=== PATIENT | male | born 1960 | race Caucasian/White ===

== ENCOUNTER → 2018-12-11 13:45 | Outpatient (CLI) | payer MEDICARE | END | disposition home or self-care (01) | LOC: D.RT 13:45 | PROVIDERS: ATTEND Internal Medicine Pulmonary Disease | DX: J43.9 Emphysema, unspecified (principal) ==

== ENCOUNTER → 2019-01-24 11:46 | Outpatient (CLI) | payer MEDICARE | END | disposition home or self-care (01) | LOC: D.LAB 11:46 | PROVIDERS: ATTEND Internal Medicine Pulmonary Disease | DX: J43.9 Emphysema, unspecified (principal) ==

== ENCOUNTER 2019-02-14 08:22 | Outpatient (CLI) | payer MEDICARE ==
[~2019-02-14] VITALS: Ht 182.9 cm; Wt 79.5 kg
[2019-02-14 09:06] LABS: APTT 32.1 SECONDS (22.8-39.4); INR 1.03 (0.85-1.17)
[2019-02-14 09:09] LABS: BASOPHILS 0.2 % (0-2); EOSINOPHILS 2.3 % (0-7); HEMATOCRIT 38.7 % (42.0-54.0); HEMOGLOBIN 12.4 g/dL (13.5-17.5); IMMATURE GRANULOCYTES 0.3 % (0-5); LYMPHOCYTES 22.3 % (15-50); MCH 27.8 pg (26.0-34.0); MCV 86.8 fL (80.0-100.0); MONOCYTES 10.6 % (2-11); NEUTROPHILS 64.3 % (40-80); PLATELET COUNT 462 10x3/uL (130-400); RBC 4.46 10x6/uL (4.20-6.10); WBC 9.7 10x3/uL (4.8-10.8)
[2019-02-14] MEDS ORDERED: INCRUSE ELLI62.5 MCG INH (09:23)
[2019-02-14] MEDS ORDERED: SYMBICORT 80-10.2 GM INH (09:23)
[2019-02-14] MEDS ORDERED: ALBUTEROL SULF8.5 GM INH (09:24)
[2019-02-14 09:45] VITALS: BP 137/91; Ht 182.9 cm; Wt 79.5 kg
== END 2019-02-14 15:00 | disposition home or self-care (01) ==
LOC: D.OPS 08:22
PROVIDERS: ATTEND Internal Medicine Pulmonary Disease
DX: R91.8 Other nonspecific abnormal finding of lung field (principal)

== ENCOUNTER 2019-02-28 05:35 | Day surgery (SDC) | payer MEDICARE ==
[~2019-02-28 05:35] MED LIST: ALBUTEROL SULF8.5 GM INH; INCRUSE ELLI62.5 MCG INH; SYMBICORT 80-10.2 GM INH
[2019-02-28 05:54] LABS: BASOPHILS 0.1 % (0-2); EOSINOPHILS 2.1 % (0-7); HEMOGLOBIN 12.6 g/dL (13.5-17.5); IMMATURE GRANULOCYTES 0.3 % (0-5); LYMPHOCYTES 17.5 % (15-50); MCH 29.2 pg (26.0-34.0); MCHC 34.1 g/dL (31.0-37.0); MCV 85.6 fL (80.0-100.0); MEAN PLATELET VOLUME 9.6 fL (7.4-10.4); MONOCYTES 10.3 % (2-11); NEUTROPHILS 69.7 % (40-80); PLATELET COUNT 379 10x3/uL (130-400); RBC 4.32 10x6/uL (4.20-6.10); RDW 14.3 % (11.5-14.5); WBC 10.2 10x3/uL (4.8-10.8)
[2019-02-28 06:15] LABS: APTT 31.5 SECONDS (22.8-39.4); INR 1.05 (0.85-1.17); PROTIME 13.2 SECONDS (11.6-15.0)
[2019-02-28 06:29] VITALS: BP 134/86; BMI 23.5
[2019-02-28] MEDS ORDERED: SULFAMETHOXAZOL1 TA3 PO (09:08)
[2019-02-28] MEDS ORDERED: HYDROCODON-ACE1 EAC7 PO (09:08)
--- NOTE | 2019-02-28 09:16 | NUR ---
OPA IN AIRWAY ON ADMIT
--- NOTE | 2019-02-28 10:49 | NUR ---
1025 IV REMOVED AND PT RECIEVED A FULL LIQ TRAY. NO NAUSEA POST OP INSTRUCTIONS GIVEN
== END 2019-02-28 11:07 | disposition home or self-care (01) ==
LOC: D.OPS 05:35 → D.PAN 08:15 → D.OPS 10:30
PROVIDERS: Anesthesiology; ATTEND Surgery
DX: C34.90 Malignant neoplasm of unspecified part of unspecified bronchus or lung (principal); Z01.812 Encounter for preprocedural laboratory examination

== ENCOUNTER → 2019-03-16 08:29 | Outpatient (CLI) | payer MEDICARE ==
[2019-02-28 06:29] VITALS: BMI 23.5
[~2019-03-16 08:29] MED LIST changes: +HYDROCODON-ACE1 EAC7 PO; +SULFAMETHOXAZOL1 TA3 PO
== END | disposition home or self-care (01) ==
LOC: D.MRI 08:29
PROVIDERS: ATTEND Internal Medicine Hematology & Oncology
DX: C34.91 Malignant neoplasm of unspecified part of right bronchus or lung (principal)

== ENCOUNTER → 2019-05-07 11:46 | Outpatient (CLI) | payer MEDICARE | END | disposition home or self-care (01) | LOC: D.LABREF 11:46 | PROVIDERS: ATTEND Internal Medicine Hematology & Oncology | DX: C34.91 Malignant neoplasm of unspecified part of right bronchus or lung (principal); J44.1 Chronic obstructive pulmonary disease with (acute) exacerbation; Z51.11 Encounter for antineoplastic chemotherapy ==

== ENCOUNTER → 2019-05-28 10:54 | Outpatient (CLI) | payer MEDICARE | END | disposition home or self-care (01) | LOC: D.CT 10:54 | PROVIDERS: ATTEND Internal Medicine Hematology & Oncology | DX: C34.91 Malignant neoplasm of unspecified part of right bronchus or lung (principal) ==

== ENCOUNTER → 2019-06-28 12:18 | Outpatient (CLI) | payer MEDICARE ==
[~2019-06-28 12:18] MED LIST changes: +FLAGYL500 MG PO; +PHENERGAN25 M1 PO
== END | disposition home or self-care (01) ==
LOC: D.MRI 12:18
PROVIDERS: ATTEND Internal Medicine Hematology & Oncology
DX: C34.91 Malignant neoplasm of unspecified part of right bronchus or lung (principal); H52.7 Unspecified disorder of refraction

== ENCOUNTER 2019-07-16 13:42 | Inpatient (IN) | payer MEDICARE ==
[~2019-07-16] VITALS: Ht 182.9 cm; Wt 84.8 kg
[~2019-07-16 13:42] MED LIST changes: -FLAGYL500 MG PO; -PHENERGAN25 M1 PO
[2019-07-16 14:52] LABS: ANION GAP 16.2 mmol/L (8-16); CARBON DIOXIDE 25.8 mmol/L (21.0-32.0); CREATININE - SERUM 1.3 mg/dL (0.6-1.3)
[2019-07-16 14:57] LABS: ALBUMIN 3.3 g/dL (3.4-5.0); BILIRUBIN - TOTAL 1.06 mg/dL (0.2-1.3); PROTEIN - SERUM 8.5 g/dL (6.4-8.2)
[2019-07-16 15:27] LABS: BASOPHILS 0.3 % (0-2); EOSINOPHILS 0.2 % (0-7); HEMATOCRIT 31.3 % (42.0-54.0); IMMATURE GRANULOCYTES 0.2 % (0-5); LYMPHOCYTES 20.8 % (15-50); MCHC 31.9 g/dL (31.0-37.0); MCV 96.9 fL (80.0-100.0); MEAN PLATELET VOLUME 10.1 fL (7.4-10.4); MONOCYTES 16.5 % (2-11); RBC 3.23 10x6/uL (4.20-6.10); RDW 16.8 % (11.5-14.5); WBC 6.2 10x3/uL (4.8-10.8)
[2019-07-16 15:41] LABS: PLATELET COUNT 257 10x3/uL (130-400)
[2019-07-16 16:07] LABS: APPEARANCE CLEAR (CLEAR); BILIRUBIN NEGATIVE (NEGATIVE); COLOR DK YELLOW (YELLOW); GLUCOSE NEGATIVE (NEGATIVE); KETONE NEGATIVE (NEGATIVE); NITRITE NEGATIVE (NEGATIVE); PROTEIN TRACE mg/dL (NEGATIVE); SPECIFIC GRAVITY 1.015 (1.005-1.020); UROBILINOGEN NORMAL (NORMAL)
[2019-07-16 16:08] LABS: BACTERIA FEW /hpf (NEGATIVE); RED CELLS - URINE OCC /hpf (0-5); WHITE CELLS - URINE 0-5 /hpf (NEGATIVE)
--- NOTE | 2019-07-16 18:45 | NUR ---
REPORT TO PRINCE. PT TO BE ADMITTED TO [id number].
--- NOTE | 2019-07-16 19:45 | NUR ---
NEW ADMIT TO DR LEMON ON MED 3 FOR GASTROENTERITIS WITH N/V/D AND HYPOKALEMIA FROM [facility] ED. TRANSPORTED VIA WHEELCHAIR. ACCOMPANIED BY ED STAFF. UPON ARRIVAL TO MED 3, PATIENT WAS CALM AND COOPERATIVE WITH ADMISSION ASSESSMENT. PATIENT DENIES FEELING NAUSEATED AT THIS TIME. BED IN LOWEST POSITION. SIDE RAILS UP. CALL LIGHT IN REACH. WILL CONTINUE TO MONITOR.
[2019-07-16] MEDS ORDERED: PHENERGAN25 M1 PO (19:49)
[2019-07-16 19:57] VITALS: BP 110/67; BMI 25.4
[2019-07-17] VITALS (7 sets, daily range): BP systolic 94–104; BP diastolic 60–66; Ht 182.9 cm; Wt 84.8 kg
--- NOTE | 2019-07-17 03:58 | NUR ---
PATIENT RESTING IN BED WITH EYES CLOSED. NO SIGNS OF DISTRESS. BED IN LOWEST POSITION. SIDE RAILS UP. CALL LIGHT IN REACH. WILL CONTINUE TO MONITOR.
[2019-07-17 06:30] LABS: BASOPHILS 0.3 % (0-2); HEMATOCRIT 28.8 % (42.0-54.0); HEMOGLOBIN 9.1 g/dL (13.5-17.5); IMMATURE GRANULOCYTES 0.1 % (0-5); LYMPHOCYTES 13.4 % (15-50); MCH 30.8 pg (26.0-34.0); MCHC 31.6 g/dL (31.0-37.0); MCV 97.6 fL (80.0-100.0); MEAN PLATELET VOLUME 9.9 fL (7.4-10.4); MONOCYTES 13.2 % (2-11); PLATELET COUNT 217 10x3/uL (130-400); RBC 2.95 10x6/uL (4.20-6.10); WBC 7.2 10x3/uL (4.8-10.8)
[2019-07-17 06:41] LABS: CALCIUM 7.8 mg/dL (8.5-10.1); CARBON DIOXIDE 25.9 mmol/L (21.0-32.0); CREATININE - SERUM 1.1 mg/dL (0.6-1.3)
[2019-07-17 06:43] LABS: POTASSIUM - SERUM 3.9 mmol/L (3.5-5.1)
--- NOTE | 2019-07-17 07:35 | NUR ---
PT SITTING UP IN BED WATCHING TV, NO S/S OF DISTRESS NOTED AT THIS TIME. IV LOCATED TO RIGHT AC CURRENTLY RUNNING NS W/40K @ 125ML/HR. DENIES ANY NEEDS AT THIS TIME, WILL CONT TO MONITOR.
[2019-07-17 08:30] LABS: MAGNESIUM - SERUM 1.3 mg/dL (1.8-2.4); PHOSPHOROUS 1.8 mg/dL (2.5-4.9)
--- NOTE | 2019-07-17 08:36 | NUR ---
INFORMED PT OF DRS ORDERS TO OBTAIN A STOOL SAMPLE. PLACED HAT IN TOILET AND INSTRUCTED ON HOW TO CATCH, AND LET ME KNOW IF HE NEEDS ANY HELP. STATES HE HASNT BEEN ABLE TO GET ANYTHING OUT SINCE HE ARRIVED TO THE UNIT. WILL CONT TO MONITOR.
[2019-07-17 08:51] LABS: % SATURATION 14 % (15-55); IRON 38 ug/dl (35-150); TOTAL IRON BIND CAPACITY 257 ug/dl (260-445); UNSAT IRON BIND CAPACITY 219 ug/dl (150-375)
--- NOTE | 2019-07-17 10:04 | NUR ---
PT WAS ABLE TO HAVE SMALL BM, SAMPLE HAS BEEN COLLECTED AND TAKEN TO THE LAB.
--- NOTE | 2019-07-17 17:10 | MORECARE ---
CASE MANAGEMENT DISCHARGE SUMMARY PATIENT: TOMMIE LESTER UNIT: [id number] ADM DATE: 07/16/19 AGE: 59 : 64 SEX: M ROOM/BED: D.1212 AUTHOR: ERMA DOLAN PHYSICIAN: REFERRING PHYSICIAN: CRIS LEMON MD DATE OF SERVICE: 07/17/19 Discharge Plan Patient Name: TOMMIE LESTER [facility] [facility] 1960 Planned Disposition: Home Anticipated Discharge Date: Discharge Date: Expected LOS: Initial Reviewer: [email or web address] Initial Review Date: 07/16/2019 Generated: 07/17/19 6:10 pm DCPIA - Discharge Planning Initial Assessment Updated by [email or web address]: Melissa Dior on 07/17/19 5:06 pm * Is the patient Alert and Oriented? Yes * How many steps to enter\exit or inside your home? ramp * PCP VERSER * Pharmacy [facility] * Preadmission Environment Home with Family * ADLs Independent * Equipment None * List name and contact numbers for known caregivers / representatives who currently or will assist patient after discharge: DEVIN LESTER - [facility] - [phone] * Verbal permission to speak to the caregivers and representatives has been obtained from the patient. No * Community resources currently utilized None * Additional services required to return to the preadmission environment? No * Can the patient safely return to the preadmission environment? Yes * Has this patient been hospitalized within the prior 30 days at any hospital? No Patient Name: TOMMIE LESTER Page [id number] at 1710 All edits/amendments must be made on the electronic document DICTATION DATE: 07/17/191709 OFFICE MACHINE REPAIR SHOP SUPERVISOR: ANTHONY 07/17/191709 RPT#: [id number] DC DATE: STATUS: ADM IN [facility] [address] [place] [address] END OF REPORT
--- NOTE | 2019-07-17 17:19 | MORECARE ---
CASE MANAGEMENT DISCHARGE SUMMARY PATIENT: TOMMIE LESTER UNIT: [id number] ADM DATE: 07/16/19 AGE: 59 : 64 SEX: M ROOM/BED: D.1212 AUTHOR: MAGDALENODOC PHYSICIAN: REFERRING PHYSICIAN: CRIS LEMON MD DATE OF SERVICE: 07/17/19 Discharge Plan Patient Name: TOMMIE LESTER Facility: [facility]:[place] : 1960 Planned Disposition: Home Anticipated Discharge Date: Discharge Date: Expected LOS: Initial Reviewer: [email or web address] Initial Review Date: 07/16/2019 Generated: 07/17/19 6:19 pm Comments DCP- Discharge Planning Updated by [email or web address]: Melissa Dior on 07/17/19 4:[address] Patient Name: TOMMIE LESTER Admission Status: ER Accout number: [id number] Admission Date: 07-16-2019 : 1960 Admission Diagnosis: Attending: CRIS LEMON Current LOS: 1 Anticipated DC Date: Planned Disposition: Home Primary Insurance: [employer] Discharge Planning Comments: CM met with patient at bedside after explaining CM role and obtaining verbal consent. Patient lives at home with his Nickie where he is independent with his care and plans to return there upon discharge. Patient feels this would be a safe discharge. CM discussed availability / needs of home health and medical equipment. Patient has home 02 / portable with [facility]. Patient denies any discharge needs at this time. Patient states he will have his family drive him home upon discharge. CM will continue to follow and assist as needed with discharge planning / needs. Director Telemetry: Melissa Dior DCPIA - Discharge Planning Initial Assessment Updated by [email or web address]: Melissa Dior on 07/17/19 5:06 pm * Is the patient Alert and Oriented? Yes * How many steps to enter\exit or inside your home? ramp * PCP VERSER * Pharm[facility] * Preadmission Environment Home with Family * ADLs Independent * Equipment None * List name and contact numbers for known caregivers / representatives who currently or will assist patient after discharge: NICKIE LESTER - [facility] - [phone] * Verbal permission to speak to the caregivers and representatives has been obtained from the patient. No * Community resources currently utilized None * Additional services required to return to the preadmission environment? No * Can the patient safely return to the preadmission environment? Yes * Has this patient been hospitalized within the prior 30 days at any hospital? No Last DP export: 07/17/19 4:10 p Patient Name: TOMMIE LESTER Page [phone] at 1719 All edits/amendments must be made on the electronic document DICTATION DATE: 07/17/191717 TREASURY AGENT: ANTHONY 07/17/191717 RPT#: [id number] DC DATE: STATUS: ADM IN [facility] [address] [place] [address] END OF REPORT
--- NOTE | 2019-07-17 18:10 | NUR ---
PT BECOMING MORE SHORT OF BREATH WHILE TRYING TO CARRY ON CONVERSATION THIS EVENING, STATES IT ISNT A NEW SYMPTOM FOR HIM, HAS BEEN GETTING WORSE OVER THE YEARS. ASKED PT IF HE THOUGHT HE NEEDED A BREATHING TREATMENT AND HE STATED NO, HE WOULD GET ONE LATER WHEN IT WAS SCHEDULED. DENIES NEEDS AT THIS TIME BUT WILL CONT TO MONITOR.
[2019-07-18] VITALS (7 sets, daily range): BP systolic 93–106; BP diastolic 63–69
[2019-07-18 06:09] LABS: BASOPHILS 0.4 % (0-2); EOSINOPHILS 1.1 % (0-7); HEMATOCRIT 23.1 % (42.0-54.0); IMMATURE GRANULOCYTES 0.2 % (0-5); LYMPHOCYTES 14.6 % (15-50); MCH 30.7 pg (26.0-34.0); MCHC 31.6 g/dL (31.0-37.0); MCV 97.1 fL (80.0-100.0); MEAN PLATELET VOLUME 9.5 fL (7.4-10.4); MONOCYTES 10.2 % (2-11); NEUTROPHILS 73.5 % (40-80); PLATELET COUNT 216 10x3/uL (130-400); RBC 2.38 10x6/uL (4.20-6.10); RDW 16.9 % (11.5-14.5); WBC 5.6 10x3/uL (4.8-10.8)
[2019-07-18 06:30] LABS: CARBON DIOXIDE 24.1 mmol/L (21.0-32.0); CHLORIDE - SERUM 106 mmol/L (98-107); GLUCOSE 108 mg/dL (74-106); MAGNESIUM - SERUM 1.3 mg/dL (1.8-2.4); PHOSPHOROUS 1.9 mg/dL (2.5-4.9); SODIUM 139 mmol/L (136-145); eGFR NON AFRICAN AMERICAN 82 mL/min (90-120)
[2019-07-18 06:43] LABS: HEMOGLOBIN 7.3 g/dL (13.5-17.5)
[2019-07-18 07:25] LABS: CALC OSMOLALITY 276 mosm/kg (275-300); POTASSIUM - SERUM 3.2 mmol/L (3.5-5.1); UREA NITROGEN 7 mg/dL (7-18)
[2019-07-18 07:26] LABS: CALCIUM 6.8 mg/dL (8.5-10.1)
--- NOTE | 2019-07-18 07:31 | NUR ---
NOTIFIED BART GALVAN OF HBG OF 7.3 AND CALCIUM OF 6.8.
--- NOTE | 2019-07-18 08:50 | NUR ---
ORDER FROM DR. MALDONADO TO GIVE 20MG OF LASIX ONE TIME. DOSE AND ORDER PRO-BNP LAB AND IF RESULTS ARE GREATER THAN 2000 GIVE AN EXTRA DOSE OF 20MG OF LASIX.
--- NOTE | 2019-07-18 11:07 | NUR ---
TESTER ELECTRONIC SCALE HERE NOW TO DRAW BLOOD FOR BLOOD TRANSFUSION.
--- NOTE | 2019-07-18 13:41 | NUR ---
FIRST UNIT OF PRBCS STARTED INFUSING, VITAL SIGNS STABLE, STARTING RATE IS 75CC/HR FOR THE FIRST 15MIN.
--- NOTE | 2019-07-18 14:00 | NUR ---
PT TOLERATING INFUSION WELL, VITAL SIGNS STABLE, PT DENIES ANY NEEDS AT THIS TIME. CALL LIGHT IN REACH, NAD NOTED, WILL CONTINUE TO MONITOR.
--- NOTE | 2019-07-18 19:45 | NUR ---
EVENING ROUNDS COMPLETED. VSS, AAOX4, NO S/S OF RESP DISTRESS. PRBC INFUSING @100MLS/HR. PT DENIES ANY FURTHER NEEDS AT THIS TIME. WILL CPOC.
--- NOTE | 2019-07-18 20:15 | NUR ---
PRBC INFUSION COMPLETE. POST BLOOD TRANSFUSION INSTRUCTION GIVEN TO PT. PT VERBALIZED UNDERSTANDING. VSS AT THIS TIME.
[2019-07-19 04:00] VITALS: BP 111/67
[2019-07-19 05:26] LABS: BASOPHILS 0.2 % (0-2); EOSINOPHILS 1.3 % (0-7); IMMATURE GRANULOCYTES 0.3 % (0-5); LYMPHOCYTES 14.2 % (15-50); MCH 30.7 pg (26.0-34.0); MCHC 32.9 g/dL (31.0-37.0); MEAN PLATELET VOLUME 9.6 fL (7.4-10.4); MONOCYTES 9.3 % (2-11); NEUTROPHILS 74.7 % (40-80); PLATELET COUNT 236 10x3/uL (130-400); RDW 17.7 % (11.5-14.5); WBC 6.3 10x3/uL (4.8-10.8)
[2019-07-19 05:56] LABS: CALC OSMOLALITY 276 mosm/kg (275-300); CALCIUM 7.1 mg/dL (8.5-10.1); CARBON DIOXIDE 26.3 mmol/L (21.0-32.0); CHLORIDE - SERUM 104 mmol/L (98-107); CREATININE - SERUM 0.8 mg/dL (0.6-1.3); GLUCOSE 107 mg/dL (74-106); MAGNESIUM - SERUM 1.4 mg/dL (1.8-2.4); POTASSIUM - SERUM 3.1 mmol/L (3.5-5.1); SODIUM 140 mmol/L (136-145); UREA NITROGEN 7 mg/dL (7-18); eGFR NON AFRICAN AMERICAN > 90 mL/min (90-120)
[2019-07-19 06:02] LABS: HEMATOCRIT 29.8 % (42.0-54.0); HEMOGLOBIN 9.8 g/dL (13.5-17.5); MCV 93.4 fL (80.0-100.0); RBC 3.19 10x6/uL (4.20-6.10)
[2019-07-19 06:05] LABS: PHOSPHOROUS 2.5 mg/dL (2.5-4.9)
--- NOTE | 2019-07-19 07:10 | NUR ---
REPORT RECIEVED FROM [employer]OL [facility] AIDE AND PATIENT CARE ASSUMED. PATIENT SITTING UP IN BED AWAKE, ALERT AND ORIENTED X 4. PATIENT IS STABLE AND VSS. PATIENT DENIES ANY NEEDS OR PAIN. WILL CONTINUE WITH PLAN OF CARE. SR UP X 2 BED IN LOW POSITION AND CALL LIGHT IN REACH.
[2019-07-19 08:00] VITALS: BP 103/64
--- NOTE | 2019-07-19 09:19 | NUR ---
NUTRITION F/U PT TOLERATING REG DIET. 50 TO 75% INTAKE RECENT MEALS. WILL CONTINUE TO PROVIDE DIET, HONOR FOOD PREFERENCES. MONITOR PO INTAKE. RD FOLLOWING
--- NOTE | 2019-07-19 10:36 | NUR ---
PATIENT IS STABLE AND DENIES ANY NEEDS OR PAIN. GAVE PATIENT ICE CREAM PER REQUEST. SR UP XC 2 BED IN LOW POSITION AND CALL LIGHT IN REACH.
[2019-07-19 11:30] VITALS: BP 122/78
--- NOTE | 2019-07-19 14:00 | NUR ---
DR LEMON MAKING ROUNDS. INFORMED THIS NURSE THYAT PATIENT HAS BEEN C - DIFF POSITIVE SINCE 07/17/19 AT 1536 AND PATIENT SHOULD BE UNDER ENTERIC PRECAUTIONS. ENTERIC PRECAUTIONS PUT IN PLACE.
[2019-07-19 16:30] VITALS: BP 128/79
--- NOTE | 2019-07-19 17:19 | NUR ---
PATIENT SITTING UP IN BED EATING SUPPER. PATIENT IS STABLE AND VSS. PATIENT DENIES ANY NEEDS OR PAIN. WILL CONTINUE TO MONITOR. AT BS. SR UP X 2 BED IN LOW POSTION AND CALL LIGHT IN REACH.
--- NOTE | 2019-07-19 19:45 | NUR ---
EVENING ROUNDS COMPLETED. VSS, AAOX4, NO S/S OF DISTRESS, RR EVEN AND UNLABORED. C-DIFF/ENTERIC PRECAUTION IN PLACE. SPOUSE AT BEDSIDE. PT DENIES ANY NEED FOR PAIN AT THIS TIME. WILL CPOC. CL WITHIN REACH, BED IN LOW, SR UP X2.
[2019-07-19 20:37] VITALS: BP 120/72
[2019-07-20] VITALS: BP 108/55
[2019-07-20 04:00] VITALS: BP 115/66
[2019-07-20 07:44] LABS: BASOPHILS 0.3 % (0-2); EOSINOPHILS 1.8 % (0-7); HEMATOCRIT 32.2 % (42.0-54.0); HEMOGLOBIN 10.4 g/dL (13.5-17.5); IMMATURE GRANULOCYTES 0.2 % (0-5); MCH 30.9 pg (26.0-34.0); MCHC 32.3 g/dL (31.0-37.0); MEAN PLATELET VOLUME 9.5 fL (7.4-10.4); MONOCYTES 9.8 % (2-11); NEUTROPHILS 72.9 % (40-80); PLATELET COUNT 263 10x3/uL (130-400); RBC 3.37 10x6/uL (4.20-6.10); RDW 17.6 % (11.5-14.5)
[2019-07-20 07:45] LABS: MCV 95.5 fL (80.0-100.0)
[2019-07-20 07:52] LABS: CALC OSMOLALITY 283 mosm/kg (275-300); CALCIUM 7.9 mg/dL (8.5-10.1); CARBON DIOXIDE 25.4 mmol/L (21.0-32.0); CHLORIDE - SERUM 108 mmol/L (98-107); CREATININE - SERUM 0.8 mg/dL (0.6-1.3); GLUCOSE 130 mg/dL (74-106); MAGNESIUM - SERUM 1.5 mg/dL (1.8-2.4); PHOSPHOROUS 2.2 mg/dL (2.5-4.9); POTASSIUM - SERUM 3.6 mmol/L (3.5-5.1); SODIUM 142 mmol/L (136-145); eGFR NON AFRICAN AMERICAN > 90 mL/min (90-120)
[2019-07-20 07:59] LABS: UREA NITROGEN 9 mg/dL (7-18)
[2019-07-20] MEDS ORDERED: FLAGYL500 MG PO (12:10)
--- NOTE | 2019-07-20 15:15 | NUR ---
PATIENT IS STABLE AND VSS. ORDER RECEIVED FOR DC. WRITTEN AND VERBAL INSTRUCTIONS GIVEN TO PATIENT AND SPOUSE. BOTH VERBALIZED UNDERSTANDING AND PATIENT SIGNED PAPER WORK. IV DCD WITHOUT DIFFICULTY WITH ENTIRE CATHETER INTACT. DRSG APPLIED. PATIENT TO FRONT DOOR VIA WC AND ACCOMPANIED BY HOSPITAL PERSONNEL. PATIENT TO PRIVATE VEHICLE DRIVEN BY FOR [facility] HOME [facility].
--- NOTE | 2019-07-20 20:17 | MORECARE ---
CASE MANAGEMENT DISCHARGE SUMMARY PATIENT: TOMMIE LESTER UNIT: [id number] ADM DATE: 07/16/19 AGE: 59 : 64 SEX: M ROOM/BED: D.1212 AUTHOR: MAGDALENODOC PHYSICIAN: REFERRING PHYSICIAN: CRIS LEMON MD DATE OF SERVICE: 07/20/19 Discharge Plan Patient Name: TOMMIE LESTER Facility: [facility]:[place] : 1960 Planned Disposition: Home Anticipated Discharge Date: Discharge Date: 07/20/2019 Expected LOS: Initial Reviewer: [email or web address] Initial Review Date: 07/16/2019 Generated: 07/20/19 9:16 pm Comments DCP- Discharge Planning Updated by [email or web address]: Melissa Dior on 07/20/19 7:[address] Patient Name: TOMMIE LESTER Encounter No: [id number] : 1960 Primary Insurance: [employer] Anticipated DC Date: Planned Disposition: Home External Planned Provider: : Celio/Milvia CAMACHO SIGNED 07/20/19 @ 1222 DCP follow-up note: Patient and family in agreement with discharge plan. No changes to plan. Case management will follow and assist as needed. Melissa Dior DCP- Discharge Planning Updated by [email or web address]: Melissa Dior on 07/17/19 4:[address] Patient Name: TOMMIE LESTER Admission Status: ER Accout number: [id number] Admission Date: 07-16-2019 : 1960 Admission Diagnosis: Attending: CRIS LEMON Current LOS: 1 Anticipated DC Date: Planned Disposition: Home Primary Insurance: [employer] Discharge Planning Comments: CM met with patient at bedside after explaining CM role and obtaining verbal consent. Patient lives at home with his Nickie where he is independent with his care and plans to return there upon discharge. Patient feels this would be a safe discharge. CM discussed availability / needs of home health and medical equipment. Patient has home 02 / portable with [facility]. Patient denies any discharge needs at this time. Patient states he will have his family drive him home upon discharge. CM will continue to follow and assist as needed with discharge planning / needs. Sorter Operator: Melissa Dior DCPIA - Discharge Planning Initial Assessment Updated by [email or web address]: Melissa Dior on 07/17/19 5:06 pm * Is the patient Alert and Oriented? Yes * How many steps to enter\exit or inside your home? ramp * PCP VERSER * Pharmacy [facility] * Preadmission Environment Home with Family * ADLs Independent * Equipment None * List name and contact numbers for known caregivers / representatives who currently or will assist patient after discharge: NICKIE LESTER - [facility] - [phone] * Verbal permission to speak to the caregivers and representatives has been obtained from the patient. No * Community resources currently utilized None * Additional services required to return to the preadmission environment? No * Can the patient safely return to the preadmission environment? Yes * Has this patient been hospitalized within the prior 30 days at any hospital? No Coverage Notice Reviewer: [email or web address] - Melissa Dior Notice Issued Date-Time: 07/20/2019 12:22 Notice Type: IM Discharge Notice Notice Delivered To: Patient Relationship to Patient: Self Environmental Safety Specialist Name: Delivery Method: HAND - Hand Delivered Concepcion Days: Prior Verbal Notification: Recipient Understood Notice: Yes Recipient Signature: Yes Med Rec Note Co-signed by Attending: Coverage Notice Comment: Last DP export: 07/17/19 4:19 p Patient Name: TOMMIE LESTER Page [id number] at 2017 All edits/amendments must be made on the electronic document DICTATION DATE: 07/20/192015 LIME KILN WORKER: ANTHONY 07/20/19 2016 RPT#: [id number] DC DATE:07/20/19 STATUS: DIS IN [facility] [address] [place] [address] END OF REPORT
--- NOTE | 2019-07-20 20:36 | MORECARE ---
CASE MANAGEMENT DISCHARGE SUMMARY PATIENT: TOMMIE LESTER UNIT: [id number] ADM DATE: 07/16/19 AGE: 59 : 64 SEX: M ROOM/BED: D.1212 AUTHOR: MAGDALENODOC PHYSICIAN: REFERRING PHYSICIAN: CRIS LEMON MD DATE OF SERVICE: 07/20/19 Discharge Plan Patient Name: TOMMIE LESTER Facility: [facility]:[place] : 1960 Planned Disposition: Home Anticipated Discharge Date: Discharge Date: 07/20/2019 Expected LOS: Initial Reviewer: [email or web address] Initial Review Date: 07/16/2019 Generated: 07/20/19 9:36 pm Comments DCP- Discharge Planning Updated by [id number]: Melissa Dior on 07/20/19 7:[address] Patient Name: TOMMIE LESTER Encounter No: [id number] : 1960 Primary Insurance: [employer] Anticipated DC Date: Planned Disposition: Home External Planned Provider: : Celio/Milvia CAMACHO SIGNED 07/20/19 @ 1222 DCP follow-up note: Patient and family in agreement with discharge plan. No changes to plan. Case management will follow and assist as needed. Melissa Dior DCP- Discharge Planning Updated by [id number]: Melissa Dior on 07/17/19 4:[address] Patient Name: TOMMIE LESTER Admission Status: ER Accout number: [id number] Admission Date: 07-16-2019 : 1960 Admission Diagnosis: Attending: CRIS LEMON Current LOS: 1 Anticipated DC Date: Planned Disposition: Home Primary Insurance: [employer] Discharge Planning Comments: CM met with patient at bedside after explaining CM role and obtaining verbal consent. Patient lives at home with his Nickie where he is independent with his care and plans to return there upon discharge. Patient feels this would be a safe discharge. CM discussed availability / needs of home health and medical equipment. Patient has home 02 / portable with [facility]. Patient denies any discharge needs at this time. Patient states he will have his family drive him home upon discharge. CM will continue to follow and assist as needed with discharge planning / needs. Make Up Operator Helper: Melissa Dior DCPIA - Discharge Planning Initial Assessment Updated by [id number]: Melissa Dior on 07/17/19 5:06 pm * Is the patient Alert and Oriented? Yes * How many steps to enter\exit or inside your home? ramp * PCP VERSER * Pharmacy [facility] * Preadmission Environment Home with Family * ADLs Independent * Equipment None * List name and contact numbers for known caregivers / representatives who currently or will assist patient after discharge: NICKIE LESTER - [facility] - [phone] * Verbal permission to speak to the caregivers and representatives has been obtained from the patient. No * Community resources currently utilized None * Additional services required to return to the preadmission environment? No * Can the patient safely return to the preadmission environment? Yes * Has this patient been hospitalized within the prior 30 days at any hospital? No Coverage Notice Reviewer: [id number] - Melissa Dior Notice Issued Date-Time: 07/20/2019 12:22 Notice Type: IM Discharge Notice Notice Delivered To: Patient Relationship to Patient: Self Piece Dyeing Machine Tender Name: Delivery Method: HAND - Hand Delivered Concepcion Days: Prior Verbal Notification: Recipient Understood Notice: Yes Recipient Signature: Yes Med Rec Note Co-signed by Attending: Coverage Notice Comment: Last DP export: 07/20/19 7:17 p Patient Name: TOMMIE LESTER Page [phone] at 203 All edits/amendments must be made on the electronic document DICTATION DATE: 07/20/192035 CREWMAN ARMOURED PERSONNEL CARRIER M113: ANTHONY 07/20/192035 RPT#: [id number] DC DATE:07/20/19 STATUS: DIS IN [facility] [address] [place] [address] END OF REPORT
== END 2019-07-20 15:21 | disposition home or self-care (01) | DRG 372 ==
LOC: D.ER 13:42 → D.M3 17:48
PROVIDERS: Emergency Medicine; ADMIT Internal Medicine Nephrology; ATTEND Internal Medicine Nephrology
DX: A04.72 Enterocolitis due to Clostridium difficile, not specified as recurrent (principal); C34.90 Malignant neoplasm of unspecified part of unspecified bronchus or lung; J96.11 Chronic respiratory failure with hypoxia; K04.7 Periapical abscess without sinus; E87.6 Hypokalemia; J44.9 Chronic obstructive pulmonary disease, unspecified; D50.9 Iron deficiency anemia, unspecified; E83.42 Hypomagnesemia; E86.0 Dehydration

== ENCOUNTER → 2019-08-13 10:32 | Outpatient (CLI) | payer MEDICARE ==
[2019-07-17 13:10] VITALS: BMI 25.3
[~2019-08-13 10:32] MED LIST changes: +FLAGYL500 MG PO; +PHENERGAN25 M1 PO
== END | disposition home or self-care (01) ==
LOC: D.CT 10:32
PROVIDERS: ATTEND Internal Medicine Hematology & Oncology
DX: C34.91 Malignant neoplasm of unspecified part of right bronchus or lung (principal)

== ENCOUNTER → 2020-01-07 08:50 | Outpatient (CLI) | payer MEDICARE ==
[2019-07-17 13:10] VITALS: BMI 25.3
== END | disposition home or self-care (01) ==
LOC: D.RT 12-24 11:30
PROVIDERS: ATTEND Internal Medicine Pulmonary Disease
DX: J44.9 Chronic obstructive pulmonary disease, unspecified (principal)

== ENCOUNTER 2020-02-02 18:40 | Emergency (ER) | payer MEDICARE ==
[~2020-02-02] VITALS: Ht 182.9 cm; Wt 85.5 kg
[2020-02-02 18:57] VITALS: Ht 182.9 cm; Wt 85.5 kg
[2020-02-02] MEDS ORDERED: NAPROSYN500 MG PO (19:44)
[2020-02-02] MEDS ORDERED: KEFLEX500 MG PO (19:44)
[2020-02-02 20:50] VITALS: BP 152/88
== END 2020-02-02 20:50 | disposition home or self-care (01) ==
LOC: D.ER 18:40
DX: S49.92XA Unspecified injury of left shoulder and upper arm, initial encounter (principal); S09.90XA Unspecified injury of head, initial encounter; S61.213A Laceration without foreign body of left middle finger without damage to nail, initial encounter; Z99.81 Dependence on supplemental oxygen; J43.9 Emphysema, unspecified; W22.8XXA Striking against or struck by other objects, initial encounter; Y93.9 Activity, unspecified; Y92.9 Unspecified place or not applicable

== ENCOUNTER 2020-11-17 13:30 | Emergency (ER) | payer MEDICARE ==
[~2020-11-17] VITALS: Ht 182.9 cm; Wt 79.5 kg
[~2020-11-17 13:30] MED LIST changes: +KEFLEX500 MG PO; +NAPROSYN500 MG PO
[2020-11-17 13:34] VITALS: BP 94/65; Ht 182.9 cm; Wt 79.5 kg
[2020-11-17] MEDS ORDERED: CHEMO MEDS (13:36)
[2020-11-17 14:09] LABS: CALC OSMOLALITY 274 mosm/kg (275-300); CALCIUM 9.8 mg/dL (8.5-10.1); CARBON DIOXIDE 27.5 mmol/L (21.0-32.0); CHLORIDE - SERUM 96 mmol/L (98-107); CREATININE - SERUM 1.3 mg/dL (0.6-1.3); GLUCOSE 216 mg/dL (74-106); SODIUM 133 mmol/L (136-145); UREA NITROGEN 17 mg/dL (7-18); eGFR NON AFRICAN AMERICAN 60 mL/min (90-120)
[2020-11-17 14:15] LABS: APTT 26.4 SECONDS (22.8-39.4); INR 1.12 (0.85-1.17); PROTIME 13.3 SECONDS (11.6-15.0)
[2020-11-17 14:23] LABS: ALBUMIN 3.5 g/dL (3.4-5.0); ALKALINE PHOSPHATASE 179 U/L (30-120); ALT (SGPT) 405 U/L (10-68); BILIRUBIN - TOTAL 0.96 mg/dL (0.2-1.3); CKMB 0.4 U/L (0.0-3.6); CREATINE KINASE 68 UL (21-232); PROTEIN - SERUM 8.7 g/dL (6.4-8.2); TROPONIN-I < 0.017 ng/mL (0.000-0.060)
[2020-11-17 14:33] LABS: HEMATOCRIT 29.6 % (42.0-54.0); LYMPHOCYTE ABS# 0.45 10x3/uL (1.32-3.57); MCH 28.6 pg (26.0-34.0); MCHC 33.8 g/dL (31.0-37.0); MCV 84.6 fL (80.0-100.0); RDW 13.3 % (11.5-14.5)
[2020-11-17 14:34] LABS: PLATELET COUNT 98 10x3/uL (130-400); WBC 0.6 10x3/uL (4.8-10.8)
[2020-11-17 15:19] LABS: EOSINOPHILS 4 % (0-7); LYMPHOCYTES 80 % (15-50); NEUTROPHILS 16 % (40-80); PLATELET ESTIMATE DECREASED
[2020-11-17 15:51] LABS: BACTERIA FEW HPF (NONE SEEN); BILIRUBIN NEGATIVE (NEGATIVE); KETONE NEGATIVE (NEGATIVE); NITRITE NEGATIVE (NEGATIVE); UROBILINOGEN NORMAL mg/dL (< 2); WHITE CELLS - URINE 0-5 HPF (0-1)
[2020-11-17] MEDS ORDERED: OMNICEF300 MG PO (16:04)
== END 2020-11-17 16:28 | disposition home or self-care (01) ==
LOC: D.ER 13:30
PROVIDERS: Family Medicine
DX: D70.9 Neutropenia, unspecified (principal); D63.1 Anemia in chronic kidney disease; N18.9 Chronic kidney disease, unspecified; R74.01 Elevation of levels of liver transaminase levels; C34.90 Malignant neoplasm of unspecified part of unspecified bronchus or lung; D69.6 Thrombocytopenia, unspecified; R73.9 Hyperglycemia, unspecified; J44.9 Chronic obstructive pulmonary disease, unspecified

== ENCOUNTER 2020-12-09 11:26 | Outpatient (CLI) | payer MEDICARE ==
[~2020-12-09] VITALS: Ht 182.9 cm; Wt 80.5 kg
[~2020-12-09 11:26] MED LIST changes: +CHEMO MEDS; +OMNICEF300 MG PO
[2020-12-09 13:05] VITALS: BP 118/75; Ht 182.9 cm; Wt 80.5 kg
--- NOTE | 2020-12-09 14:16 | NUR ---
1415 FIRST UNIT OF BLOOD CHECKED AT BEDSIDE BY THIS NURSE AND NAVEEN LEE RN, INITIATED AT 50/CC/HR.
--- NOTE | 2020-12-09 14:29 | NUR ---
1346 PT ARRIVED TO OPS WITH PAC ALREADY ACCESSED WITH BALDERAS NEEDLE. FOR EXTRA REINFORCEMENT OF NEEDLE, A TEGADERM WAS APPLIED OVER SITE. UNABLE TO OBTAIN BLOOD RETURN FROM PORT BUT IT FLUSHES WITHOUT DIFFICULTY. PT STATES HE IS ABLE TO "TASTE" THE NORMAL SALINE FLUSH.
--- NOTE | 2020-12-09 15:16 | NUR ---
1505 UP TO BR VOIDS QS, BLOOD INFUSING WELL WITHOUT PROBLEMS.
--- NOTE | 2020-12-09 15:52 | NUR ---
1550 1ST UNIT HAS COMPLETED, LINE BEING FLUSHED WITH NS. PT. HAS ATE SOME SNACKS PROVIDED BY SPOUSE. DENIES PROBLEMS WITH TRANSFUSION.
--- NOTE | 2020-12-09 16:56 | NUR ---
1550 FIRST UNIT HAS COMPLETED, BEING FLUSHED WITH NS. 1620 PT HAS RECEIVED HIS LASIX 20MG IV, 2ND UNIT CHECKED AT BEDSIDE BY THIS NURSE AND DOMINGUEZ BARCENAS RN. INITIATING AT 50/CC/HR. PT. UP TO BR VOIDS LG AMT. 1635 DENIES PROBLEMS WITH TRANSFUSION, RATE INCREASED TO 250/CC/HR
--- NOTE | 2020-12-09 17:24 | NUR ---
1700 ROOM CHECK, DENIES PROBLEMS, BLOOD INFUSING AT 250/CC/HR
== END 2020-12-09 18:32 | disposition home or self-care (01) ==
LOC: D.OPS 11:26
PROVIDERS: ATTEND Internal Medicine Hematology & Oncology
DX: D64.9 Anemia, unspecified (principal); C34.10 Malignant neoplasm of upper lobe, unspecified bronchus or lung

== ENCOUNTER 2021-01-27 11:30 | Outpatient (CLI) | payer MEDICARE ==
[~2021-01-27] VITALS: Ht 182.9 cm; Wt 78.6 kg
[2021-01-27 13:21] VITALS: Ht 182.9 cm; Wt 78.6 kg
--- NOTE | 2021-01-27 14:07 | NUR ---
PATIENT HERE FOR OP BLOOD TRANSFUSION. BLOOD PERMIT SIGNED. IV STARTED WITH 20 GAUGE IN RIGHT FOREARM X 2 ATTEMPTS. 1244 BLOOD STARTED AT 75 ML/HR X 15 MINUTES. 1259 RATE INCREASED TO 225 ML/HR PER IV INFUSION PUMP. PATIENT TOLERATING WITHOUT PROBLEMS. RESTING QUIETLY AT PRESENT
--- NOTE | 2021-01-27 15:43 | NUR ---
1520 1ST UNIT PRBC INFUSED. LASIX GIVEN ORDERED. PATIENT WITHOUT C/O VOICED. 1532 2ND UNIT PRBCS STARTED.
--- NOTE | 2021-01-27 15:50 | NUR ---
1547 RATE INCREASED TO 225 ML/HR VIA INFUSION PUMP
--- NOTE | 2021-01-27 17:01 | NUR ---
1625 REPORT FROM DAGO MARIO RN. BLOOD TRANSFUSION GOING LEFT ARM AT 225/CC/HR. PT. ON O2 2L NC. FAMILY AT BEDSIDE. DENIES PROBLEMS OR NEEDS. 1659 2ND UNIT BLOOD HAS COMPLETED, DENIES PROBLEMS, LINE BEING FLUSHED WITH NS AT 225/CC/HR.
--- NOTE | 2021-01-27 17:24 | NUR ---
1725 DENIED PROBLEMS WITH TRANSFUSION, IV DC'D WITH CATH INTACT, DC INSTRUCTIONS GIVEN, UP TO BR VOIDS LG AMT, RELEASED IN WC WITH FAMILY.
== END 2021-01-27 17:28 | disposition home or self-care (01) ==
LOC: D.OPS 11:30
PROVIDERS: ATTEND Internal Medicine Hematology & Oncology
DX: D50.0 Iron deficiency anemia secondary to blood loss (chronic) (principal); C34.11 Malignant neoplasm of upper lobe, right bronchus or lung; R53.83 Other fatigue

== ENCOUNTER → 2021-02-05 12:09 | Outpatient (CLI) | payer MEDICARE ==
[2021-01-27 13:21] VITALS: BMI 23.5
== END | disposition home or self-care (01) ==
LOC: D.CT 12:09
PROVIDERS: ATTEND Internal Medicine Hematology & Oncology
DX: C34.11 Malignant neoplasm of upper lobe, right bronchus or lung (principal); Z51.11 Encounter for antineoplastic chemotherapy; R06.09 Other forms of dyspnea; D50.0 Iron deficiency anemia secondary to blood loss (chronic); E86.0 Dehydration; J96.91 Respiratory failure, unspecified with hypoxia; D50.9 Iron deficiency anemia, unspecified; E87.6 Hypokalemia; R11.0 Nausea; C34.91 Malignant neoplasm of unspecified part of right bronchus or lung; J44.9 Chronic obstructive pulmonary disease, unspecified